=== PATIENT | male | born 1990 | race Two or more races ===

== ENCOUNTER 2025-03-14 03:56 | Emergency (ER) | payer MEDICAID ==
[~2025-03-14] VITALS: Ht 180.3 cm; Wt 87.2 kg
[~2025-03-14 03:56] MED LIST: CEPH-571 PO
[2025-03-14 03:59] VITALS: BP 136/82; PULSE 102; O2SAT 99
[2025-03-14 05:01] VITALS: RESP 18
[2025-03-14] MEDS: HYDROcodone/acetaminophen 10/325mg tab PO ONE (05:01)
[2025-03-14] MEDS: LIDOcaine 1% W/epiNEPHrine 1:100,000 20ml vial SQ ONE (05:01)
[2025-03-14] MEDS: sulfamethoxazole/trimethoprim DS (800/160mg) tablet PO ONE (05:01)
--- NOTE | 2025-03-14 05:14 | Physician Documentation ---
History of Present Illness ~ Chief Complaint: Hand pain Stated Complaint: HAND INFECTION Time Seen by MD: 04:36 Primary Medical Doctor: [facility] Source: patient Mode of Arrival: POV Exam Limitations: no limitations HPI Chief Complaint: Left index finger pain and swelling Caveat: None Independent Historians: None History of Present Illness: 34-year-old man complains of severe pain and swelling in the left index finger. This began 1-2 days ago. Patient does not recall any injury to the finger. No fever. Pain is worse with touch. Review of systems: All systems were reviewed and are negative except for what is indicated in the history of present illness. Past Medical History: None Past Surgical History: None Social History: Tobacco use, alcohol use, denies other drug use Medications: Reviewed as documented Nursing Notes Allergies: Reviewed as documented in Nursing Notes Tetanus within 5 years: Yes (05/11/15) Medication Reconciliation Allergies: Coded Allergies: No Known Allergies (Unverified , 03/14/25) Scheduled Cephalexin (Keflex), 1 CAP PO QID Past Medical History Past Medical History: No Pertinent History Past Surgical History: noncontributory Alcohol Use: Occasionally Drug Use: none Lives with: Family Lives In: Home Occupation: unemployed Review of Systems All Other Systems at this time: Reviewed and Negative ROS Patient denies any other acute symptoms other than above. All other systems are negative Physical Exam Vital Signs: Temperature: 98.9, Source: Oral, Heart Rate: 102, Respiratory Rate: 18, BP: 136/82, Pulse Oximetry: 99, Weight: 87.200 Pulse Oximetry Reflects: adequate oxygenation Physical Exam General Appearance: No distress Neck: supple, normal ROM, trachea midline Pulmonary: No respiratory distress, CTA, BS equal Cardiac: RRR, no murmur, rub or gallop, Extremities: Left index finger is uniformly swollen. Area of fluctuance over the extensor surface of the PIP joint. Decreased range of motion of the left index finger. Patient has some swelling of the hand with some mild erythema. Skin: intact, dry, warm, no rashes Neuro: AAOx3, speech is clear, no focal motor weakness Psych: normal affect, good eye contact, no apparent hallucination, normal speech Procedures I&D Procedure : Site: Left index finger Anesthesia: Lidocaine w/ Epi Volume Anesthetic (mls): 1 Blade Size: 11 Prep/Supplies: betadine prep, dressing applied, irrigated Incision: pus drained, blood drained Tolerated Procedure Well?: yes, no complications Progress Results/Orders Results/Orders Orders - JOSÉ ANTONIO DHILLON MD Finger(S) (03/14/25 04:49) Wound Care Orders (03/14/25 05:30) Completed Orders - JOSÉ ANTONIO DHILLON MD Finger(S) (03/14/25 04:49) Lidocaine 1% W/Epi 1:100,000 (Xylocaine (03/14/25 04:55) Hydrocodone/Apap 10/325 (Marianna 10/325mg (03/14/25 04:55) Sulfamethox/Trimetho. Ds Tab (Septra Ds (03/14/25 04:55) Medications Received in ER Medications (Trade) Dose Ordered Sig/Jose R Route PRN Reason Start Time Stop Time Status Last Admin Dose Admin (Xylocaine 1%-EPI 1:100,000) 10 ml ONCE ONCE SQ 03/14/25 04:55 03/14/25 04:56 DC 03/14/25 05:01 10 ML (Marianna 10/325mg tab) 1 tab ONCE ONCE PO 03/14/25 04:55 03/14/25 04:56 DC 03/14/25 05:01 1 TAB (Septra DS tab) 1 tab ONCE ONCE PO 03/14/25 04:55 03/14/25 04:56 DC 03/14/25 05:01 1 TAB Vital Signs 03/14/25 03/14/25 03:59 05:01 Temp 98.9 Pulse 102 Resp 16 18 B/P (MAP) 136/82 Pulse Ox 99 Medical Decision Making Findings Differential diagnosis includes but is not limited to: Flexor tenosynovitis, finger abscess Left index finger x-rays, three views, indication: Swelling and pain Impression: Soft tissue swelling, bones appear normal. No foreign body. Emergency department course/medical decision-making: Patient presents with an abscess over the dorsal aspect of the left hand. Physical exam is not consistent with flexor tenosynovitis. There is no injury to the flexor surface of the finger. Abscess was drained successfully. Abscess cavity was also irrigated with saline. Patient is started on Bactrim and also Marianna. Patient is stable for discharge. Departure Time of Disposition: 05:13 Disposition: 01 HOME / SELF CARE / HOMELESS Impression: Primary Impression: Abscess of finger, left Condition: Improved Discharge Instructions: Skin Abscess, [id number] Additional Instructions: RETURN TO THE ER IF YOUR SYMPTOMS WORSEN. THIS WILL TAKE MANY DAYS TO IMPROVE. Education Educated: Patient Educated regarding: diagnosis, treatment, need for follow up Signature Scribe Signature: No scribe Attestation: No scribe JOSÉ ANTONIO DHILLON MD Mar 14, 2025 05:14
--- NOTE | 2025-03-14 05:17 | RADIOLOGY REPORT ---
CLINICAL INDICATION: left middle finger infection TECHNIQUE: AP view of the left hand and 2 additional views of the left index finger were performed. DI FINGER(S) Comparison: None FINDINGS/IMPRESSION: 1. No acute fracture or dislocation of the left hand or left index finger. 2. No osseous erosions are identified to suggest osteomyelitis. No gas or radiopaque foreign bodies a re identified in the soft tissues.
[2025-03-14 05:37] VITALS: TEMP 98.9
== END 2025-03-14 05:45 | disposition home or self-care (01) ==
LOC: ER 03:57
DX: L02.512 Cutaneous abscess of left hand (principal)
CPT/HCPCS: 26010; 73140; 99283; J3490; 10060; A6449